=== PATIENT | male | born 1985 | race Caucasian/White ===

== ENCOUNTER 2020-10-17 11:30 | Emergency (ER) | payer OTHER ==
[~2020-10-17] VITALS: Ht 177.8 cm; Wt 92.2 kg
--- NOTE | 2020-10-17 12:25 | REP ---
INDICATION: pain in heel/arch COMPARISON: None. TECHNIQUE: AP, lateral, bilateral oblique views right foot. FINDINGS: The osseous structures and joint spaces are intact and normal. There is no evidence for acute fracture or dislocation. Surrounding soft tissues are unremarkable. No subcutaneous emphysema or radiodense foreign body. IMPRESSION: Normal age-appropriate right foot radiographs. <Electronically signed by Evgeny Merida > 10/17/20 0723
[2020-10-17] MEDS ORDERED: IBUP80TA PO (12:51)
[2020-10-17 13:14] VITALS: BP 142/74
== END 2020-10-17 13:15 | disposition home or self-care (01) ==
LOC: M ED 11:30
DX: M72.2 Plantar fascial fibromatosis (principal); M10.9 Gout, unspecified